=== PATIENT | female | born 1985 | race Caucasian/White ===

== ENCOUNTER 2019-11-11 06:33 | Inpatient (IN) | payer OTHER ==
[~2019-11-11] VITALS: Ht 172.7 cm; Wt 88.5 kg
[~2019-11-11 06:33] MED LIST: IBUP-1222 PO; OXYC-302 PO
[2019-11-11] MEDS ORDERED: OXYTOCIN 30U/ 0.9% NaCL 500ML 500 ML IV ONE (07:32)
[2019-11-11] MEDS ORDERED: OXYTOCIN 30U/ 0.9% NaCL 500ML 500 ML IV PRN (07:32)
[2019-11-11] MEDS ORDERED: NEWBORN KIT ONE (07:40)
[2019-11-11] MEDS ORDERED: OXYTOCIN 30U/ 0.9% NaCL 500ML 500 ML ONE ×2 (07:40→16:48)
[2019-11-11] MEDS ORDERED: MISOPROSTOL 25 MCG TABLET ONE (07:40)
[2019-11-11] MEDS ORDERED: TERBUTALINE 1 MG/ML, 1ML SQ PRN (08:00)
[2019-11-11] MEDS ORDERED: MISOPROSTOL 25 MCG TABLET VG PRN (08:00)
[2019-11-11] MEDS ORDERED: ONDANSETRON 2MG/ML, 2ML IVPush PRN (08:00)
[2019-11-11] MEDS ORDERED: FENTANYL PF 100 MCG/2ML IVPush PRN (08:00)
[2019-11-11] MEDS ORDERED: FENTANYL PF 100 MCG/2ML IV PRN (08:00)
[2019-11-11] MEDS ORDERED: TERBUTALINE 1 MG/ML, 1ML IVPush PRN (08:00)
[2019-11-11] MEDS: LACTATED RINGERS 1,000 ML IV SCH ×2 (08:15→12:51)
[2019-11-11 08:24] LABS: ALANINE AMINOTRANSFERASE 14 U/L (12-78); ALBUMIN 2.7 g/dL (3.4-5.0); ANION GAP 6 mmol/L (5-15); BILIRUBIN, DIRECT 0.1 mg/dL (0.1-0.2); CALCIUM 8.7 mg/dL (8.5-10.1); CHLORIDE 106 mmol/L (98-107)
[2019-11-11 08:25] VITALS: BP 129/72
[2019-11-11 08:31] LABS: ALKALINE PHOSPHATASE 196 U/L (45-117); BILIRUBIN,TOTAL 0.1 mg/dL (0.2-1.0); CREATININE 0.72 mg/dL (0.55-1.02)
[2019-11-11 08:52] LABS: BASOPHILS # (AUTO) 0.02 x10^3/uL (0-0.1); BASOPHILS % (AUTO) 0 % (0-1); EOSINOPHILS # (AUTO) 0.05 x10^3/uL (0-0.4); EOSINOPHILS % (AUTO) 1 % (1-7); LYMPHOCYTES # (AUTO) 1.18 x10^3/uL (1-3.4); LYMPHOCYTES % (AUTO) 12 % (22-44); MD SCAN; MEAN CORPUSCULAR HEMOGLOBIN 28.7 pg (27.0-34.8); MEAN CORPUSCULAR HGB CONC 32.6 g/dL (32.4-35.8); MEAN CORPUSCULAR VOLUME 88.1 fL (80-100); MEAN PLATELET VOLUME 11.8 fL (7.4-10.4); MONOCYTES # (AUTO) 0.48 x10^3/uL (0.2-0.8); MONOCYTES % (AUTO) 5 % (2-9); NEUTROPHILS # (AUTO) 7.97 x10^3/uL (1.8-6.8); NEUTROPHILS % (AUTO) 82 % (42-75); PLATELET COUNT 120 x10^3/uL (130-400); RED BLOOD COUNT 4.11 x10^6/uL (3.82-5.3)
[2019-11-11 09:04] LABS: CREATININE,URINE RANDOM 48.6 mg/dL
[2019-11-11] MEDS ORDERED: FENTANYL/BUPIV./NS/PF 250 ML EPIDCONT SCH ×3 (12:37→14:31)
[2019-11-11] MEDS ORDERED: FENTANYL PF 500 MCG, BUPIVACAINE/PF 0.5%, 30ML 62.5 ML in SODIUM CHLORIDE 0.9% 177.5 ML EPIDCONT SCH (13:00)
[2019-11-11] MEDS ORDERED: LACTATED RINGERS 1,000 ML IV SCH ×2 (13:40→14:31)
[2019-11-11] MEDS ORDERED: BUPIVACAINE 0.25% ONE (13:42)
[2019-11-11] MEDS ORDERED: NALOXONE 0.4 MG/ML, 1ML IVPush PRN ×2 (14:00→15:00)
[2019-11-11] MEDS ORDERED: EPHEDRINE 50 MG/ML, 1ML IVPush PRN ×2 (14:00→15:00)
[2019-11-11] MEDS ORDERED: LACTATED RINGERS 1,000 ML IVBOLUS PRN ×2 (14:00→15:00)
[2019-11-11] MEDS: OXYTOCIN 30U/ 0.9% NaCL 500ML 500 ML IV SCH (16:52)
[2019-11-11] MEDS ORDERED: ONDANSETRON 2MG/ML, 2ML IV PRN (17:00)
[2019-11-11] MEDS ORDERED: MISOPROSTOL 200 MCG TABLET PR PRN (17:00)
[2019-11-11] MEDS ORDERED: SIMETHICONE 80 MG CHEW TAB PO PRN (17:00)
[2019-11-11] MEDS ORDERED: DOCUSATE 100 MG CAPSULE PO PRN (17:00)
[2019-11-11] MEDS ORDERED: ACETAMINOPHEN 325 MG TABLET PO PRN (17:00)
[2019-11-11 18:00] VITALS: BP 137/80
[2019-11-11] MEDS: IBUPROFEN 800 MG TABLET PO PRN (19:32)
[2019-11-11 19:35] VITALS: BP 135/84
[2019-11-12 00:29] LABS: MEAN CORPUSCULAR HEMOGLOBIN 27.6 pg (27.0-34.8); MEAN CORPUSCULAR HGB CONC 32.2 g/dL (32.4-35.8); MEAN CORPUSCULAR VOLUME 85.8 fL (80-100); MEAN PLATELET VOLUME 11.4 fL (7.4-10.4); PLATELET COUNT 132 x10^3/uL (130-400); RED BLOOD COUNT 4.19 x10^6/uL (3.82-5.3); RED CELL DISTRIBUTION WIDTH 13.9 % (9.6-15.2)
[2019-11-12 00:30] LABS: BASOPHILS # (AUTO) 0.03 x10^3/uL (0-0.1); BASOPHILS % (AUTO) 0 % (0-1); EOSINOPHILS # (AUTO) 0.01 x10^3/uL (0-0.4); EOSINOPHILS % (AUTO) 0 % (1-7); LYMPHOCYTES # (AUTO) 0.84 x10^3/uL (1-3.4); LYMPHOCYTES % (AUTO) 8 % (22-44); MD SCAN; MONOCYTES # (AUTO) 0.52 x10^3/uL (0.2-0.8); MONOCYTES % (AUTO) 5 % (2-9); NEUTROPHILS # (AUTO) 8.93 x10^3/uL (1.8-6.8); NEUTROPHILS % (AUTO) 87 % (42-75)
[2019-11-12 00:55] VITALS: BP 116/69
[2019-11-12] MEDS: OXYcodone IR 5MG TABLET PO PRN ×3 (01:17→10:11)
[2019-11-12] MEDS: OXYTOCIN 30U/ 0.9% NaCL 500ML 500 ML IV SCH (02:39)
[2019-11-12] MEDS: IBUPROFEN 800 MG TABLET PO PRN ×2 (02:59→12:33)
[2019-11-12 03:02] VITALS: BP 127/78
[2019-11-12 07:15] VITALS: BP 132/85
[2019-11-12] MEDS ORDERED: PRENATAL VIT/IRON/FA 1 EACH TABLET PO SCH (09:00)
[2019-11-12] MEDS ORDERED: IBUP-1222 PO (10:20)
[2019-11-12 12:00] VITALS: BP 101/68
[2019-11-12 12:05] VITALS: BP 115/78
== END 2019-11-12 12:40 | disposition home or self-care (01) | DRG 807 ==
LOC: UNDOADMIN 06:33 → LDIP 06:33 → 2NW 18:00
PROVIDERS: ADMIT Student in an Organized Health Care Education/Training Program; ATTEND Student in an Organized Health Care Education/Training Program
PROC: 10E0XZZ Delivery of Products of Conception, External Approach (ICD-10-PCS; principal; 2019-11-11)
PROC: 3E0R3BZ Introduction of Anesthetic Agent into Spinal Canal, Percutaneous Approach (ICD-10-PCS; 2019-11-11)
PROC: 00HU33Z Insertion of Infusion Device into Spinal Canal, Percutaneous Approach (ICD-10-PCS; 2019-11-11)
PROC: 10907ZC Drainage of Amniotic Fluid, Therapeutic from Products of Conception, Via Natural or Artificial Opening (ICD-10-PCS; 2019-11-11)
DX: O99.284 Endocrine, nutritional and metabolic diseases complicating childbirth (principal); Z37.0 Single live birth; O99.344 Other mental disorders complicating childbirth; F32.9 Major depressive disorder, single episode, unspecified; E55.9 Vitamin D deficiency, unspecified; Z3A.39 39 weeks gestation of pregnancy; Z83.3 Family history of diabetes mellitus; Z91.410 Personal history of adult physical and sexual abuse; Z79.899 Other long term (current) drug therapy; Q96.9 Turner's syndrome, unspecified
CPT/HCPCS: 36415; 80053; 82248; 82570; 84156; 84550; 85025; 86592; 86850; 86900; G0378; J2590; J3010; J7120